=== PATIENT | male | born 1945 | race Caucasian/White ===

== ENCOUNTER 2023-07-02 09:38 | Emergency (ER) | payer OTHER ==
[2023-07-02] MEDS ORDERED: Sodium Chloride 0.9% 10 ML Syringe FLUSH PRN (13:07)
[2023-07-02 13:29] LABS: BASOPHILS ABSOLUTE AUTO 0.07 K/uL (0.00-0.10); BASOPHILS PERCENT AUTO 0.7 % (0.1-1.3); EOSINOPHILS ABSOLUTE AUTO 0.15 K/uL (0.00-0.40); EOSINOPHILS PERCENT AUTO 1.5 % (0.0-5.4); HEMATOCRIT 46.8 % (38.4-49.7); HEMOGLOBIN 15.8 g/dL (12.9-16.9); LYMPHOCYTES ABSOLUTE AUTO 1.63 K/uL (0.8-3.3); LYMPHOCYTES PERCENT AUTO 15.9 % (11.4-47.7); MEAN CORPUSCULAR HGB CONC 33.8 g/dL (31.6-35.5); MEAN CORPUSCULAR VOLUME 91.8 fL (81.4-99.0); MONOCYTES ABSOLUTE AUTO 0.73 K/uL (0.20-0.90); MONOCYTES PERCENT AUTO 7.1 % (3.3-12.6); NEUTROPHILS ABSOLUTE AUTO 7.55 K/uL (1.0-7.6); NEUTROPHILS PERCENT AUTO 73.8 % (40.0-78.1); PLATELET COUNT,PLT 171 K/uL (130-375); WHITE BLOOD CELL COUNT,WBC 10.2 K/uL (3.2-11.0)
[2023-07-02] MEDS: Sodium Chloride 0.9% 1,000 ML IV SCH (13:37)
[2023-07-02] MEDS: Rivaroxaban 15 MG Tab PO SCH (13:37)
[2023-07-02 13:57] LABS: CALCIUM 9.5 mg/dL (8.5-10.1); CREATININE 0.9 mg/dL (0.8-1.3); EST CRCL DRUG DOSING (CG) 74.37 mL/min; POTASSIUM,K 4.3 mmol/L (3.6-5.2)
[2023-07-02 14:00] LABS: ANION GAP 15.3 mmol/L (5.0-14.0)
[2023-07-02] MEDS: Sodium Chloride 0.9% 100 ML IV ONE (14:12)
[2023-07-02] MEDS: Iopamidol 755 Mg/ML 100 ML Bottle IV ONE (14:12)
[2023-07-02] MEDS: Sodium Chloride 0.9% 10 ML Syringe FLUSH ONE (14:12)
[2023-07-02 15:36] VITALS: BP 132/78; PULSE 57
== END 2023-07-02 16:16 | disposition home or self-care (01) ==
LOC: JP.ED 09:38
DX: I82.411 Acute embolism and thrombosis of right femoral vein (principal); I25.10 Atherosclerotic heart disease of native coronary artery without angina pectoris; E78.00 Pure hypercholesterolemia, unspecified; I10 Essential (primary) hypertension; Z79.899 Other long term (current) drug therapy; Z88.5 Allergy status to narcotic agent; Z79.82 Long term (current) use of aspirin
CPT/HCPCS: 36415; 71275; 80048; 85025; 93971; 99284; A9270; J3490; J7030; Q9967